=== PATIENT | male | born 1975 | race Caucasian/White ===

== ENCOUNTER 2020-09-26 23:55 | Emergency (ER) | payer BC, OTHER ==
[2020-09-27 00:05] VITALS: BMI 27.3
[2020-09-27] MEDS ORDERED: SODIUM CHLORIDE 1,000 ML IV ONE (00:13)
[2020-09-27 00:29] VITALS: TEMP 97.9
[2020-09-27] MEDS ORDERED: ACETAMINOPHEN 325 MG TABLET (FP) PO ONE (00:46)
[2020-09-27] MEDS ORDERED: ACETAMINOPHEN 325 MG TABLET (FP) ONE (00:48)
[2020-09-27 00:59] LABS: BASO % 0.6 % (0-2.0)
[2020-09-27 01:01] LABS: EOS % 2.3 % (0-4.5); HEMATOCRIT 43.8 % (35.4-49); HEMOGLOBIN 14.7 GM/dL (11.7-16.9); LYMPH % 32.9 % (8-40); MCH 30.6 pg (25.7-33.7); MCHC 33.7 g/dl (32.0-35.9); MEAN PLT VOLUME 10.7 fl (7.5-11.1); MONO % 7.8 % (3.8-10.2); NEUT % 56.4 % (42.8-82.8); PLATELET COUNT 193 K/MM3 (134-434); RBC 4.81 M/mm3 (4.00-5.60); RDW 13.2 % (11.9-15.9); WHITE BLOOD COUNT 9.8 K/mm3 (4.0-10.0)
[2020-09-27 01:17] LABS: CHLORIDE 100 mmol/L (98-107); SODIUM 135 mmol/L (136-145)
[2020-09-27 01:19] LABS: ANION GAP 6 MMOL/L (8-16); CO2 30 mmol/L (21-32); GLUCOSE,RANDOM 86 mg/dL (74-106)
[2020-09-27 01:22] LABS: CREATININE 1.1 mg/dL (0.55-1.3); SGOT/AST 16 U/L (15-37)
[2020-09-27 01:24] LABS: BILIRUBIN,TOTAL 0.5 mg/dL (0.2-1); TOT PROT 6.7 g/dl (6.4-8.2)
[2020-09-27 01:25] LABS: ALK PHOS 67 U/L (45-117)
[2020-09-27 01:28] LABS: SGPT/ALT 22 U/L (13-61)
[2020-09-27 02:15] VITALS: BP 99/75; PULSE 62
== END 2020-09-27 02:46 | disposition home or self-care (01) ==
LOC: FER 23:55
PROC: 3E0337Z Introduction of Electrolytic and Water Balance Substance into Peripheral Vein, Percutaneous Approach (ICD-10-PCS; principal; 2020-09-27)
DX: R55 Syncope and collapse (principal); S00.83XA Contusion of other part of head, initial encounter; W22.8XXA Striking against or struck by other objects, initial encounter
CPT/HCPCS: 36415; 70486-TC; 80053; 82550; 84484; 85025; 93005; 99285-25

== ENCOUNTER 2023-07-14 15:25 | Emergency (ER) | payer OTHER ==
[2023-07-14] MEDS ORDERED: NAPROXEN 500 MG TABLET PO ONE (15:41)
[2023-07-14] MEDS ORDERED: NAPROXEN 500 MG TABLET ONE (15:56)
[2023-07-14 16:12] VITALS: BP 120/79; PULSE 57; RESP 18; TEMP 98; BMI 28.1
== END 2023-07-14 16:23 | disposition home or self-care (01) ==
LOC: FER 15:25
DX: S46.212A Strain of muscle, fascia and tendon of other parts of biceps, left arm, initial encounter (principal); M79.602 Pain in left arm; X50.0XXA Overexertion from strenuous movement or load, initial encounter; Y93.F2 Activity, caregiving, lifting
CPT/HCPCS: 99283-25